=== PATIENT | female | born 1940 | race Caucasian/White ===

== ENCOUNTER 2016-09-08 00:58 | Inpatient (IN) | payer OTHER ==
[~2016-09-08] VITALS: Ht 154.9 cm; Wt 71.1 kg
[~2016-09-08 00:58] MED LIST: ADVAIR HFA120 INHALA IH; ASPIR-LOW81 MG PO; ATIVAN0.5 MG PO; BENZONATATE100 MG PO; EYE DROPS OP; FOLIC ACID0.4 MG PO; FOLIC ACID1 MG PO; IBUPROFEN800 MG PO; LATANO; LATANOPROST2.5 ML BOTH EYES; LEVAQUIN500 MG PO; METAMUCIL POWD822 GM PO; MOTRIN800 MG PO; NYQUIL D COLD295 ML PO; OCUVITE SOFTGE1 EACH PO; Ocuvite PO; PREDNISONE PO; PREDNISONE10 MG PO; PREDNISONE20 MG PO; PROAIR HFA8.5 GM IH; ROCEPHIN1000 MG IM; ROCEPHIN1000 MG IV; SPIRIVA RESPIMAT4 GM IH; SPIRIVA1 INHALATI IH; TARCEVA150 MG PO; TRAVATAN Z5 ML BOTH EYES; TYLENOL REGULA325 MG PO; TYLENOL WITH C1 EACH PO; Ultram PO; VITAMIN D1000 UNIT PO; VITAMIN D31000 UNIT PO; VITAMIN E1000 UNIT PO; ZITHROMAX250 MG PO
[2016-09-08 01:46] LABS: EOSINOPHIL (%) 0.7 % (0-5); EOSINOPHIL COUNT 0.1 K/uL (0-0.3); HEMATOCRIT 42.1 % (36.0-46.0); IMMATURE GRANULOCYTE (%) 0.5 % (0.0-0.7); IMMATURE GRANULOCYTE COUNT 0.1 K/uL; INSTRUMENT ABS NEUTROPHIL CT 10.8 K/uL; LYMPHOCYTE COUNT 1.5 K/uL (1.0-2.8); MCH 29.4 PG (29.0-34.0); MCHC 31.6 G/DL (30.0-36.0); MCV 93.1 FL (83-99); MEAN PLAT.VOLUME 10.3 uM^3 (9.5-12.4); MONOCYTE (%) 5.5 % (3-12); MONOCYTE COUNT 0.7 K/uL (0-0.8); NEUTROPHIL COUNT 10.8 K/uL (1.8-6.4); PLATELET COUNT 229 K/uL (156-360); RBC DIS.WIDTH-CV 14.2 % (11.8-14.6); RBC DIS.WIDTH-SD 48.9 % (39-53); RED BLOOD COUNT 4.52 M/uL (3.80-5.20); WHITE BLOOD COUNT 13.2 K/uL (4.1-10.2)
[2016-09-08 02:05] LABS: CHLORIDE 104 mEq/L (99-109); SODIUM 141 mEq/L (136-147)
[2016-09-08 02:07] LABS: GLUCOSE 114 mg/dL (70-99)
[2016-09-08 02:08] LABS: ANION GAP 13 MEQ/L (2-14)
[2016-09-08 02:09] LABS: TOTAL BILIRUBIN 0.4 mg/dL (0.0-1.0)
[2016-09-08 02:11] LABS: ALKALINE PHOSPHATASE 48 IU/L (3-129); GFR ESTIMATE (CALCULATED) > 59 mL/min/
[2016-09-08 02:12] LABS: UREA NITROGEN (BUN) 25 mg/dL (9-23)
[2016-09-08 02:15] LABS: TROP-I INTERPRETATION NEGATIVE; TROPONIN-I < 0.01 ng/mL (0.0-0.30)
[2016-09-08] MEDS ORDERED: TARCEVA25 MG PO (05:40)
[2016-09-08 06:28] VITALS: BP 134/74
[2016-09-08 08:02] VITALS: BP 118/58
[2016-09-08 10:03] LABS: TROP-I INTERPRETATION NEGATIVE; TROPONIN-I 0.02 ng/mL (0.0-0.30)
[2016-09-08 12:18] VITALS: BP 125/57
[2016-09-08] MEDS ORDERED: COLACE100 MG PO (12:48)
[2016-09-08] MEDS ORDERED: CYANOCOBAL1000 MCG/2 IM (12:49)
[2016-09-08 15:09] LABS: TROP-I INTERPRETATION NEGATIVE; TROPONIN-I < 0.01 ng/mL (0.0-0.30)
[2016-09-08 16:08] LABS: METH RESISTANT S AUREUS PCR NEGATIVE (NEGATIVE)
[2016-09-08 16:51] LABS: PROBE CHECK PASS; SPECIMEN PROCESSING CONTROL PASS
[2016-09-08 17:33] VITALS: BP 111/62
[2016-09-08 19:30] VITALS: BP 108/56
[2016-09-09] VITALS: BP 108/56
[2016-09-09 04:10] VITALS: BP 112/57
[2016-09-09 09:15] VITALS: BP 140/64
[2016-09-09 09:45] LABS: ANION GAP 10 MEQ/L (2-14); CHLORIDE 106 MEQ/L (99-109); GFR ESTIMATE (CALCULATED) > 59 mL/min/; GLUCOSE 124 mg/dL (70-99); SAMPLE HEMOLYSIS CHECK 0; SAMPLE ICTERIC CHECK 0; SAMPLE LIPEMIA CHECK 0; SODIUM 140 MEQ/L (136-147); UREA NITROGEN (BUN) 17 mg/dL (9-23)
[2016-09-09 10:03] LABS: HEMATOCRIT 34.3 % (36.0-46.0); MCH 29.5 PG (29.0-34.0); MCHC 31.8 G/DL (30.0-36.0); MCV 92.7 FL (83-99); MEAN PLAT.VOLUME 10.3 uM^3 (9.5-12.4); PLATELET COUNT 247 K/uL (156-360); RBC DIS.WIDTH-CV 14.6 % (11.8-14.6); RBC DIS.WIDTH-SD 49.3 % (39-53)
[2016-09-09 11:00] LABS: INTER. NORMALIZED RATIO 1.1; PROTHROMBIN TIME 10.9 (9.2-11.2); PTT 26.6 (25-32)
[2016-09-09 16:35] VITALS: BP 132/62
[2016-09-09 20:00] VITALS: BP 151/67
[2016-09-10] VITALS (10 sets, daily range): BP systolic 109–140; BP diastolic 53–78
[2016-09-10 10:52] LABS: HEMATOCRIT 34.6 % (36.0-46.0); MCH 29.9 PG (29.0-34.0); MCHC 32.7 G/DL (30.0-36.0); MCV 91.5 FL (83-99); MEAN PLAT.VOLUME 10.7 uM^3 (9.5-12.4); PLATELET COUNT 254 K/uL (156-360); RBC DIS.WIDTH-CV 14.6 % (11.8-14.6); RED BLOOD COUNT 3.78 M/uL (3.80-5.20); WHITE BLOOD COUNT 18.9 K/uL (4.1-10.2)
[2016-09-10 11:01] LABS: ANION GAP 8 MEQ/L (2-14); CHLORIDE 107 MEQ/L (99-109); GFR ESTIMATE (CALCULATED) > 59 mL/min/; GLUCOSE 97 mg/dL (70-99); POTASSIUM 3.7 MEQ/L (3.7-5.4); SAMPLE HEMOLYSIS CHECK 0; SAMPLE ICTERIC CHECK 0; SAMPLE LIPEMIA CHECK 0; SODIUM 143 MEQ/L (136-147); UREA NITROGEN (BUN) 19 mg/dL (9-23)
[2016-09-11 04:05] VITALS: BP 128/74
[2016-09-11 08:00] VITALS: BP 164/78
[2016-09-11 10:17] LABS: HEMATOCRIT 38.1 % (36.0-46.0); MCH 29.1 PG (29.0-34.0); MCHC 31.8 G/DL (30.0-36.0); MCV 91.6 FL (83-99); MEAN PLAT.VOLUME 10.1 uM^3 (9.5-12.4); PLATELET COUNT 297 K/uL (156-360); RBC DIS.WIDTH-CV 14.6 % (11.8-14.6); RBC DIS.WIDTH-SD 49.3 % (39-53); RED BLOOD COUNT 4.16 M/uL (3.80-5.20); WHITE BLOOD COUNT 10.5 K/uL (4.1-10.2)
[2016-09-11 10:23] LABS: ANION GAP 11 MEQ/L (2-14); CHLORIDE 106 MEQ/L (99-109); GFR ESTIMATE (CALCULATED) 57 mL/min/; GLUCOSE 111 mg/dL (70-99); POTASSIUM 3.9 MEQ/L (3.7-5.4); SAMPLE HEMOLYSIS CHECK 0; SAMPLE ICTERIC CHECK 0; SAMPLE LIPEMIA CHECK 0; SODIUM 142 MEQ/L (136-147); UREA NITROGEN (BUN) 19 mg/dL (9-23)
[2016-09-11 15:27] VITALS: BP 123/60
[2016-09-11 19:57] VITALS: BP 135/70
[2016-09-11 23:35] VITALS: BP 120/63
[2016-09-12 04:06] VITALS: BP 154/70
[2016-09-12 08:00] VITALS: BP 137/79
[2016-09-12 10:40] LABS: HEMATOCRIT 39.9 % (36.0-46.0); MCH 29.3 PG (29.0-34.0); MCHC 31.6 G/DL (30.0-36.0); MCV 92.8 FL (83-99); MEAN PLAT.VOLUME 9.8 uM^3 (9.5-12.4); PLATELET COUNT 301 K/uL (156-360); RBC DIS.WIDTH-CV 14.5 % (11.8-14.6); RBC DIS.WIDTH-SD 49.7 % (39-53); WHITE BLOOD COUNT 12.4 K/uL (4.1-10.2)
[2016-09-12 11:03] LABS: ANION GAP 11 MEQ/L (2-14); CHLORIDE 105 MEQ/L (99-109); GFR ESTIMATE (CALCULATED) > 59 mL/min/; GLUCOSE 109 mg/dL (70-99); POTASSIUM 3.8 MEQ/L (3.7-5.4); SAMPLE HEMOLYSIS CHECK 0; SAMPLE ICTERIC CHECK 0; SAMPLE LIPEMIA CHECK 0; SODIUM 141 MEQ/L (136-147); UREA NITROGEN (BUN) 18 mg/dL (9-23)
[2016-09-12 12:00] VITALS: BP 126/70
[2016-09-12 16:00] VITALS: BP 116/61
[2016-09-12 20:13] VITALS: BP 147/64
[2016-09-13] VITALS (7 sets, daily range): BP systolic 116–143; BP diastolic 58–70
[2016-09-14 04:05] VITALS: BP 130/62
[2016-09-14 08:21] VITALS: BP 138/64
[2016-09-14 09:08] LABS: MCH 29.2 PG (29.0-34.0); MCHC 31.7 G/DL (30.0-36.0); MCV 92.1 FL (83-99); MEAN PLAT.VOLUME 9.9 uM^3 (9.5-12.4); PLATELET COUNT 327 K/uL (156-360); RBC DIS.WIDTH-CV 14.6 % (11.8-14.6); RBC DIS.WIDTH-SD 48.6 % (39-53); RED BLOOD COUNT 3.91 M/uL (3.80-5.20)
[2016-09-14 10:09] LABS: ANION GAP 9 MEQ/L (2-14); CHLORIDE 105 MEQ/L (99-109); GFR ESTIMATE (CALCULATED) > 59 mL/min/; GLUCOSE 85 mg/dL (70-99); SAMPLE HEMOLYSIS CHECK 1; SAMPLE ICTERIC CHECK 0; SAMPLE LIPEMIA CHECK 0; SODIUM 142 MEQ/L (136-147); UREA NITROGEN (BUN) 18 mg/dL (9-23)
[2016-09-14 10:10] LABS: POTASSIUM 4.2 MEQ/L (3.7-5.4)
[2016-09-14 12:22] VITALS: BP 146/68
[2016-09-14 16:45] VITALS: BP 130/64
[2016-09-14 19:57] VITALS: BP 112/56
[2016-09-14 23:41] VITALS: BP 118/56
[2016-09-15 04:05] VITALS: BP 139/66
[2016-09-15 07:56] LABS: HEMATOCRIT 35.1 % (36.0-46.0); MCH 29.6 PG (29.0-34.0); MCHC 31.9 G/DL (30.0-36.0); MCV 92.6 FL (83-99); MEAN PLAT.VOLUME 9.7 uM^3 (9.5-12.4); PLATELET COUNT 338 K/uL (156-360); RBC DIS.WIDTH-CV 14.6 % (11.8-14.6); RBC DIS.WIDTH-SD 49.6 % (39-53); RED BLOOD COUNT 3.79 M/uL (3.80-5.20); WHITE BLOOD COUNT 13.7 K/uL (4.1-10.2)
[2016-09-15 08:00] VITALS: BP 120/65
[2016-09-15 08:10] LABS: ANION GAP 6 MEQ/L (2-14); CHLORIDE 105 MEQ/L (99-109); GFR ESTIMATE (CALCULATED) > 59 mL/min/; GLUCOSE 80 mg/dL (70-99); POTASSIUM 4.5 MEQ/L (3.7-5.4); SAMPLE HEMOLYSIS CHECK 0; SAMPLE ICTERIC CHECK 0; SAMPLE LIPEMIA CHECK 0; SODIUM 141 MEQ/L (136-147); UREA NITROGEN (BUN) 21 mg/dL (9-23)
[2016-09-15] MEDS ORDERED: LEVAQUIN500 MG PO (08:53)
== END 2016-09-15 10:25 | disposition home or self-care (01) | DRG 190 ==
LOC: EME → EDBD 00:58 → 4SOUTH 04:02 → EDOF 04:02 → 4SOUTH 05:02
PROVIDERS: Emergency Medicine; Physician Assistant; Radiology Diagnostic Radiology
PROC: 0BBG3ZX Excision of Left Upper Lung Lobe, Percutaneous Approach, Diagnostic (ICD-10-PCS; principal; 2016-09-08)
DX: J44.1 Chronic obstructive pulmonary disease with (acute) exacerbation (principal); J18.9 Pneumonia, unspecified organism; C34.90 Malignant neoplasm of unspecified part of unspecified bronchus or lung; C79.9 Secondary malignant neoplasm of unspecified site; F32.9 Major depressive disorder, single episode, unspecified; F41.9 Anxiety disorder, unspecified; Z77.22 Contact with and (suspected) exposure to environmental tobacco smoke (acute) (chronic); Z92.21 Personal history of antineoplastic chemotherapy; Z92.3 Personal history of irradiation; D72.829 Elevated white blood cell count, unspecified
CPT/HCPCS: 71010; 71275; 77012; 80048; 80053; 83605; 84145 90; 84484; 85025; 85027; 85610; 85730; 87040; 87641; 88305; 88341 TC; 88342 TC; 93005; 94010; 94640; 94640 76; 94799; 99202; 99281; 99285; J0456; J0692; J0696; J1650; J2270; J2405; J2920; J3010; J7030; J7040; J7050; J7512

== ENCOUNTER 2016-11-25 20:14 | Emergency (ER) | payer OTHER ==
[~2016-11-25] VITALS: Ht 152.4 cm; Wt 69.8 kg
[~2016-11-25 20:14] MED LIST changes: +COLACE100 MG PO; +CYANOCOBAL1000 MCG/2 IM; +TARCEVA25 MG PO
[2016-11-25 20:38] LABS: BASOPHIL COUNT 0.1 K/uL (0-0.1); EOSINOPHIL COUNT 0.1 K/uL (0-0.3); HEMATOCRIT 35.9 % (36.0-46.0); IMMATURE GRANULOCYTE (%) 0.8 % (0.0-0.7); IMMATURE GRANULOCYTE COUNT 0.1 K/uL; INSTRUMENT ABS NEUTROPHIL CT 6.4 K/uL; LYMPHOCYTE COUNT 3.9 K/uL (1.0-2.8); MCH 29.7 PG (29.0-34.0); MCHC 32.3 G/DL (30.0-36.0); MCV 91.8 FL (83-99); MONOCYTE (%) 11.6 % (3-12); MONOCYTE COUNT 1.4 K/uL (0-0.8); NEUTROPHIL (%) 53.7 % (45-76); NEUTROPHIL COUNT 6.4 K/uL (1.8-6.4); PLATELET COUNT 243 K/uL (156-360); RBC DIS.WIDTH-CV 14.6 % (11.8-14.6); RBC DIS.WIDTH-SD 49.1 % (39-53); RED BLOOD COUNT 3.91 M/uL (3.80-5.20)
[2016-11-25 20:48] LABS: CHLORIDE 105 mEq/L (99-109); POTASSIUM 3.9 mEq/L (3.7-5.4); SODIUM 139 mEq/L (136-147)
[2016-11-25 20:50] LABS: GLUCOSE 117 mg/dL (70-99)
[2016-11-25 20:51] LABS: ANION GAP 10 MEQ/L (2-14)
[2016-11-25 20:53] LABS: SERUM ETHYL ALCOHOL < 10 mg/dL
[2016-11-25 20:54] LABS: GFR ESTIMATE (CALCULATED) 46 mL/min/
[2016-11-25 20:55] LABS: UREA NITROGEN (BUN) 17 mg/dL (9-23)
[2016-11-26] MEDS ORDERED: PERCOCET 5/31 TABLET PO (00:40)
[2016-11-26 01:02] VITALS: BP 124/74
== END 2016-11-26 01:02 | disposition home or self-care (01) ==
LOC: EME 20:14
PROVIDERS: Emergency Medicine
PROC: 2W3DX1Z Immobilization of Left Lower Arm using Splint (ICD-10-PCS; principal; 2016-11-25)
DX: S52.572A Other intraarticular fracture of lower end of left radius, initial encounter for closed fracture (principal); S06.9X1A Unspecified intracranial injury with loss of consciousness of 30 minutes or less, initial encounter; S00.83XA Contusion of other part of head, initial encounter; W10.9XXA Fall (on) (from) unspecified stairs and steps, initial encounter; Y92.009 Unspecified place in unspecified non-institutional (private) residence as the place of occurrence of the external cause; J32.0 Chronic maxillary sinusitis; M85.822 Other specified disorders of bone density and structure, left upper arm; M11.232 Other chondrocalcinosis, left wrist; Z85.118 Personal history of other malignant neoplasm of bronchus and lung; Z79.52 Long term (current) use of systemic steroids
CPT/HCPCS: 70450; 70486; 72125; 73060; 73090; 73110; 80048; 85025; 93005; 99281; 99285; G0480; J2270; J2405; J3010; J7030

== ENCOUNTER 2016-12-17 10:09 | Inpatient (IN) | payer OTHER ==
[~2016-12-17] VITALS: Ht 152.4 cm; Wt 70.0 kg
[~2016-12-17 10:09] MED LIST changes: +PERCOCET 5/31 TABLET PO; +ZOLOFT25 MG PO
[2016-12-17 11:20] LABS: EOSINOPHIL (%) 0.9 % (0-5); EOSINOPHIL COUNT 0.1 K/uL (0-0.3); HEMATOCRIT 38.2 % (36.0-46.0); IMMATURE GRANULOCYTE (%) 0.3 % (0.0-0.7); INSTRUMENT ABS NEUTROPHIL CT 6.7 K/uL; LYMPHOCYTE COUNT 1.6 K/uL (1.0-2.8); MCH 29.3 PG (29.0-34.0); MCHC 31.9 G/DL (30.0-36.0); MCV 91.8 FL (83-99); MONOCYTE (%) 8.8 % (3-12); MONOCYTE COUNT 0.8 K/uL (0-0.8); NEUTROPHIL COUNT 6.7 K/uL (1.8-6.4); PLATELET COUNT 322 K/uL (156-360); RBC DIS.WIDTH-CV 14.4 % (11.8-14.6); RBC DIS.WIDTH-SD 48.6 % (39-53); RED BLOOD COUNT 4.16 M/uL (3.80-5.20); WHITE BLOOD COUNT 9.2 K/uL (4.1-10.2)
[2016-12-17 11:22] LABS: CHLORIDE 105 mEq/L (99-109); POTASSIUM 3.8 mEq/L (3.7-5.4); SODIUM 140 mEq/L (136-147)
[2016-12-17 11:23] LABS: GLUCOSE 108 mg/dL (70-99)
[2016-12-17 11:25] LABS: ANION GAP 12 MEQ/L (2-14)
[2016-12-17 11:27] LABS: GFR ESTIMATE (CALCULATED) > 59 mL/min/
[2016-12-17 11:28] LABS: UREA NITROGEN (BUN) 13 mg/dL (9-23)
[2016-12-17 11:36] LABS: TROP-I INTERPRETATION NEGATIVE; TROPONIN-I < 0.01 ng/mL (0.0-0.30)
[2016-12-17] MEDS ORDERED: LATANOPROST2.5 ML BOTH EYES (14:10)
[2016-12-17] MEDS ORDERED: SPIRIVA RESPIMAT4 GM IH (14:10)
[2016-12-17 15:43] VITALS: BP 146/73
[2016-12-17 17:27] LABS: TROP-I INTERPRETATION NEGATIVE; TROPONIN-I 0.01 ng/mL (0.0-0.30)
[2016-12-17 19:45] VITALS: BP 162/76
[2016-12-17 23:38] VITALS: BP 140/65
[2016-12-17 23:43] LABS: TROP-I INTERPRETATION NEGATIVE; TROPONIN-I < 0.01 ng/mL (0.0-0.30)
[2016-12-18 04:22] VITALS: BP 153/70
[2016-12-18 06:18] LABS: EOSINOPHIL (%) 0 % (0-5); HEMATOCRIT 34.1 % (36.0-46.0); IMMATURE GRANULOCYTE (%) 0.9 % (0.0-0.7); IMMATURE GRANULOCYTE COUNT 0.1 K/uL; INSTRUMENT ABS NEUTROPHIL CT 4.7 K/uL; LYMPHOCYTE COUNT 0.7 K/uL (1.0-2.8); MCH 30.8 PG (29.0-34.0); MCHC 33.1 G/DL (30.0-36.0); MCV 92.9 FL (83-99); MEAN PLAT.VOLUME 10.4 uM^3 (9.5-12.4); MONOCYTE (%) 0.7 % (3-12); NEUTROPHIL COUNT 4.7 K/uL (1.8-6.4); PLATELET COUNT 267 K/uL (156-360); RBC DIS.WIDTH-CV 14.3 % (11.8-14.6); RBC DIS.WIDTH-SD 48.4 % (39-53); RED BLOOD COUNT 3.67 M/uL (3.80-5.20); WHITE BLOOD COUNT 5.5 K/uL (4.1-10.2)
[2016-12-18 06:34] LABS: ALKALINE PHOSPHATASE 54 IU/L (3-129); ANION GAP 9 MEQ/L (2-14); CHLORIDE 103 MEQ/L (99-109); GFR ESTIMATE (CALCULATED) > 59 mL/min/; POTASSIUM 4.3 MEQ/L (3.7-5.4); SAMPLE HEMOLYSIS CHECK 0; SAMPLE ICTERIC CHECK 0; SAMPLE LIPEMIA CHECK 0; SODIUM 137 MEQ/L (136-147); TOTAL BILIRUBIN 0.3 MG/DL (0.0-1.0); UREA NITROGEN (BUN) 10 mg/dL (9-23)
[2016-12-18 06:51] LABS: GLUCOSE 166 mg/dL (70-99); TROP-I INTERPRETATION NEGATIVE; TROPONIN-I 0.01 ng/mL (0.0-0.30)
[2016-12-18 08:00] VITALS: BP 135/62
[2016-12-18 12:17] VITALS: BP 149/71
[2016-12-18 15:32] VITALS: BP 136/62
[2016-12-18] MEDS ORDERED: OXYCODONE HCL5 MG PO (16:13)
[2016-12-18] MEDS ORDERED: FENTANYL1 EAC4 TD (16:13)
[2016-12-18 19:40] VITALS: BP 148/70
[2016-12-18 23:09] VITALS: BP 164/74
[2016-12-19 04:49] VITALS: BP 150/68
[2016-12-19 07:30] LABS: EOSINOPHIL (%) 0 % (0-5); HEMATOCRIT 34.9 % (36.0-46.0); IMMATURE GRANULOCYTE (%) 0.7 % (0.0-0.7); IMMATURE GRANULOCYTE COUNT 0.1 K/uL; INSTRUMENT ABS NEUTROPHIL CT 14.4 K/uL; LYMPHOCYTE COUNT 1.2 K/uL (1.0-2.8); MCH 30.4 PG (29.0-34.0); MCHC 32.4 G/DL (30.0-36.0); MCV 93.8 FL (83-99); MEAN PLAT.VOLUME 10.4 uM^3 (9.5-12.4); MONOCYTE (%) 3.1 % (3-12); MONOCYTE COUNT 0.5 K/uL (0-0.8); NEUTROPHIL (%) 88.7 % (45-76); NEUTROPHIL COUNT 14.4 K/uL (1.8-6.4); PLATELET COUNT 262 K/uL (156-360); RBC DIS.WIDTH-CV 14.4 % (11.8-14.6); RBC DIS.WIDTH-SD 49.2 % (39-53); RED BLOOD COUNT 3.72 M/uL (3.80-5.20); WHITE BLOOD COUNT 16.2 K/uL (4.1-10.2)
[2016-12-19 07:44] LABS: ALKALINE PHOSPHATASE 56 IU/L (3-129); ANION GAP 8 MEQ/L (2-14); CHLORIDE 103 MEQ/L (99-109); GFR ESTIMATE (CALCULATED) > 59 mL/min/; GLUCOSE 143 mg/dL (70-99); POTASSIUM 4.4 MEQ/L (3.7-5.4); SAMPLE HEMOLYSIS CHECK 0; SAMPLE ICTERIC CHECK 0; SAMPLE LIPEMIA CHECK 0; SODIUM 138 MEQ/L (136-147); TOTAL BILIRUBIN 0.3 MG/DL (0.0-1.0); UREA NITROGEN (BUN) 14 mg/dL (9-23)
[2016-12-19 12:02] VITALS: BP 132/64
[2016-12-19 17:20] VITALS: BP 142/67
[2016-12-19 20:00] VITALS: BP 140/69
[2016-12-19 23:49] VITALS: BP 162/80
[2016-12-20 03:55] VITALS: BP 136/64
[2016-12-20 05:52] LABS: EOSINOPHIL (%) 0 % (0-5); HEMATOCRIT 33.8 % (36.0-46.0); IMMATURE GRANULOCYTE (%) 0.5 % (0.0-0.7); IMMATURE GRANULOCYTE COUNT 0.1 K/uL; INSTRUMENT ABS NEUTROPHIL CT 13.5 K/uL; LYMPHOCYTE COUNT 0.9 K/uL (1.0-2.8); MCH 29.9 PG (29.0-34.0); MCHC 32.2 G/DL (30.0-36.0); MCV 92.6 FL (83-99); MEAN PLAT.VOLUME 10.8 uM^3 (9.5-12.4); MONOCYTE (%) 2.6 % (3-12); MONOCYTE COUNT 0.4 K/uL (0-0.8); NEUTROPHIL (%) 90.9 % (45-76); NEUTROPHIL COUNT 13.5 K/uL (1.8-6.4); PLATELET COUNT 254 K/uL (156-360); RBC DIS.WIDTH-CV 14.6 % (11.8-14.6); RBC DIS.WIDTH-SD 49.5 % (39-53); RED BLOOD COUNT 3.65 M/uL (3.80-5.20); WHITE BLOOD COUNT 14.9 K/uL (4.1-10.2)
[2016-12-20 06:28] LABS: ALKALINE PHOSPHATASE 48 IU/L (3-129); ANION GAP 8 MEQ/L (2-14); CHLORIDE 98 MEQ/L (99-109); GFR ESTIMATE (CALCULATED) > 59 mL/min/; GLUCOSE 146 mg/dL (70-99); POTASSIUM 4.8 MEQ/L (3.7-5.4); SAMPLE HEMOLYSIS CHECK 0; SAMPLE ICTERIC CHECK 0; SAMPLE LIPEMIA CHECK 0; SODIUM 134 MEQ/L (136-147); TOTAL BILIRUBIN 0.3 MG/DL (0.0-1.0); UREA NITROGEN (BUN) 17 mg/dL (9-23)
[2016-12-20 08:00] VITALS: BP 151/74
[2016-12-20] MEDS ORDERED: SENNA-DOCUSATE1 EAC1 PO (12:05)
[2016-12-20] MEDS ORDERED: AUGMENTIN875 MG PO (12:07)
[2016-12-20] MEDS ORDERED: OMEPRAZOLE20 MG PO (12:18)
[2016-12-20 13:37] VITALS: BP 132/72
== END 2016-12-20 14:17 | disposition home or self-care (01) | DRG 190 ==
LOC: EME 10:09 → EDOF 13:29 → 4EAST 13:29
PROVIDERS: Emergency Medicine; Hospitalist
DX: J44.0 Chronic obstructive pulmonary disease with (acute) lower respiratory infection (principal); J18.9 Pneumonia, unspecified organism; C34.91 Malignant neoplasm of unspecified part of right bronchus or lung; C34.92 Malignant neoplasm of unspecified part of left bronchus or lung; C79.9 Secondary malignant neoplasm of unspecified site; J44.1 Chronic obstructive pulmonary disease with (acute) exacerbation; I48.91 Unspecified atrial fibrillation; K59.00 Constipation, unspecified; J96.11 Chronic respiratory failure with hypoxia; Y95 Nosocomial condition; R63.4 Abnormal weight loss; Z92.21 Personal history of antineoplastic chemotherapy; Z99.81 Dependence on supplemental oxygen; S52.502D Unspecified fracture of the lower end of left radius, subsequent encounter for closed fracture with routine healing
CPT/HCPCS: 71010; 71020; 71275; 73110; 80048; 80053; 84484; 85025; 87040; 93005; 94010; 94640; 94640 76; 94760; 94799; 99202; 99281; 99285; J0456; J0692; J0696; J1650; J2270; J2405; J2920; J2930; J3370; J7050; Q0167

== ENCOUNTER 2016-12-23 18:49 | Emergency (ER) | payer OTHER ==
[~2016-12-23] VITALS: Ht 152.4 cm; Wt 65.5 kg
[~2016-12-23 18:49] MED LIST changes: +AUGMENTIN875 MG PO; +FENTANYL1 EAC4 TD; +OMEPRAZOLE20 MG PO; +OXYCODONE HCL5 MG PO; +SENNA-DOCUSATE1 EAC1 PO
[2016-12-23 20:25] LABS: EOSINOPHIL (%) 0.8 % (0-5); EOSINOPHIL COUNT 0.1 K/uL (0-0.3); HEMATOCRIT 38.2 % (36.0-46.0); IMMATURE GRANULOCYTE (%) 0.6 % (0.0-0.7); IMMATURE GRANULOCYTE COUNT 0.1 K/uL; INSTRUMENT ABS NEUTROPHIL CT 7.8 K/uL; MCH 29.8 PG (29.0-34.0); MCHC 32.7 G/DL (30.0-36.0); MEAN PLAT.VOLUME 10.6 uM^3 (9.5-12.4); MONOCYTE (%) 11.1 % (3-12); MONOCYTE COUNT 1.2 K/uL (0-0.8); NEUTROPHIL (%) 69.9 % (45-76); NEUTROPHIL COUNT 7.8 K/uL (1.8-6.4); PLATELET COUNT 250 K/uL (156-360); RBC DIS.WIDTH-CV 14.3 % (11.8-14.6); RBC DIS.WIDTH-SD 47.5 % (39-53); WHITE BLOOD COUNT 11.2 K/uL (4.1-10.2)
[2016-12-23 20:39] LABS: CHLORIDE 101 mEq/L (99-109)
[2016-12-23 20:40] LABS: SODIUM 137 mEq/L (136-147)
[2016-12-23 20:41] LABS: GLUCOSE 117 mg/dL (70-99)
[2016-12-23 20:43] LABS: ANION GAP 11 MEQ/L (2-14)
[2016-12-23 20:45] LABS: GFR ESTIMATE (CALCULATED) > 59 mL/min/
[2016-12-23 20:46] LABS: UREA NITROGEN (BUN) 16 mg/dL (9-23)
[2016-12-23 20:48] LABS: TROP-I INTERPRETATION NEGATIVE; TROPONIN-I < 0.01 ng/mL (0.0-0.30)
[2016-12-23] MEDS ORDERED: MEDROL DOSEPAK4 MG PO (22:45)
[2016-12-23 23:23] VITALS: BP 141/82
== END 2016-12-23 23:28 | disposition home or self-care (01) ==
LOC: EME 18:49
PROVIDERS: Emergency Medicine
DX: C34.90 Malignant neoplasm of unspecified part of unspecified bronchus or lung (principal); J44.9 Chronic obstructive pulmonary disease, unspecified; Z99.81 Dependence on supplemental oxygen; Z87.01 Personal history of pneumonia (recurrent); Z79.899 Other long term (current) drug therapy; Z92.3 Personal history of irradiation
CPT/HCPCS: 71010; 71275; 80048; 83605; 84484; 85025; 87040; 93005; 99281; 99284; J2930

== ENCOUNTER 2017-03-17 15:58 | Observation (INO) | payer OTHER ==
[~2017-03-17] VITALS: Ht 152.4 cm; Wt 61.1 kg
[~2017-03-17 15:58] MED LIST changes: +ARYMO ER15 MG PO; +MEDROL DOSEPAK4 MG PO; +REMERON15 M2 PO
[2017-03-17 16:57] LABS: HEMATOCRIT 34.7 % (36.0-46.0); MCH 26.9 PG (29.0-34.0); MCHC 31.7 G/DL (30.0-36.0); MCV 84.8 FL (83-99); MEAN PLAT.VOLUME 10.3 uM^3 (9.5-12.4); PLATELET COUNT 344 K/uL (156-360); RBC DIS.WIDTH-CV 13.2 % (11.8-14.6); RBC DIS.WIDTH-SD 41.1 % (39-53); RED BLOOD COUNT 4.09 M/uL (3.80-5.20)
[2017-03-17 17:41] LABS: CHLORIDE 95 mEq/L (99-109); POTASSIUM 4.1 mEq/L (3.7-5.4); SODIUM 131 mEq/L (136-147)
[2017-03-17 17:43] LABS: ANION GAP 14 MEQ/L (2-14)
[2017-03-17 17:46] LABS: GFR ESTIMATE (CALCULATED) 42 mL/min/; GLUCOSE 753 mg/dL (70-99)
[2017-03-17 17:47] LABS: UREA NITROGEN (BUN) 21 mg/dL (9-23)
[2017-03-17 18:40] LABS: ADD MIUA? NO; BILIRUBIN NEGATIVE; BLOOD NEGATIVE; COLOR STRAW ((YELLOW)); GLUCOSE (STRIP) >=500; KETONES 5; LEUKOCYTES NEGATIVE; NITRITE NEGATIVE; PROTEIN (STRIP) NEGATIVE; UROBILINOGEN 0.2 MG/DL (0.2-1.0)
[2017-03-17] MEDS ORDERED: MIRTAZAPINE30 MG PO (19:24)
[2017-03-17] MEDS ORDERED: MORPHINE SULFAT15 M1 PO (19:25)
[2017-03-17 19:31] LABS: UCUL ADDED? NO
[2017-03-17] MEDS ORDERED: IBUPROFEN800 MG PO (19:31)
[2017-03-17] MEDS ORDERED: COMPAZINE10 MG PO (19:33)
[2017-03-17] MEDS ORDERED: FOLIC ACID0.4 MG PO (19:34)
[2017-03-17 21:15] LABS: POINT-OF-CARE METER ID UU13113702; POINT-OF-CARE USER ID HMLKAV
[2017-03-18 00:15] VITALS: BP 140/65
[2017-03-18 00:54] LABS: POINT-OF-CARE METER ID UU13113831
[2017-03-18 03:53] VITALS: BP 129/60
[2017-03-18 05:45] LABS: HEMATOCRIT 31.7 % (36.0-46.0); MCH 26.7 PG (29.0-34.0); MCHC 30.9 G/DL (30.0-36.0); MCV 86.4 FL (83-99); MEAN PLAT.VOLUME 10.1 uM^3 (9.5-12.4); PLATELET COUNT 319 K/uL (156-360); RBC DIS.WIDTH-CV 13.1 % (11.8-14.6); RBC DIS.WIDTH-SD 41.6 % (39-53); RED BLOOD COUNT 3.67 M/uL (3.80-5.20); WHITE BLOOD COUNT 10.5 K/uL (4.1-10.2)
[2017-03-18 06:13] LABS: POINT-OF-CARE METER ID UU14162513
[2017-03-18 06:16] LABS: ANION GAP 10 MEQ/L (2-14); GFR ESTIMATE (CALCULATED) > 59 mL/min/; SAMPLE HEMOLYSIS CHECK 0; SAMPLE ICTERIC CHECK 0; SAMPLE LIPEMIA CHECK 0; UREA NITROGEN (BUN) 16 mg/dL (9-23)
[2017-03-18 06:20] LABS: CHLORIDE 107 MEQ/L (99-109); GLUCOSE 76 mg/dL (70-99); POTASSIUM 3.2 MEQ/L (3.7-5.4); SODIUM 140 MEQ/L (136-147)
[2017-03-18 07:03] LABS: Estimated Average Glucose 217 mg/dL (70-123); HEMOGLOBIN A1c (GLYCOHEMOGLOB) 9.2 % HGB (Below 5.7)
[2017-03-18 07:04] LABS: POINT-OF-CARE METER ID UU14162513
[2017-03-18 07:45] VITALS: BP 116/56
[2017-03-18] MEDS ORDERED: GLUCOPHAGE500 MG PO (11:10)
[2017-03-18] MEDS ORDERED: LEVEMIR FL100 UNIT/1 SC (11:10)
[2017-03-18] MEDS ORDERED: NOVOLOG MI100 UNIT/2 SC (11:11)
[2017-03-18 11:50] VITALS: BP 137/63
[2017-03-18 12:57] LABS: POINT-OF-CARE METER ID UU14162513
[2017-03-19 15:19] LABS: POINT-OF-CARE METER ID UU13113702; POINT-OF-CARE USER ID HMLKAV
[2017-03-19 15:19] LABS: POINT-OF-CARE METER ID UU13113778
== END 2017-03-18 16:10 | disposition home or self-care (01) ==
LOC: EME 15:58 → EDOF 20:21 → 5WEST 20:21 → ENRESERV 20:23 → 5WEST 23:59
PROVIDERS: Emergency Medicine; Hospitalist
DX: E11.65 Type 2 diabetes mellitus with hyperglycemia (principal); T38.0X5A Adverse effect of glucocorticoids and synthetic analogues, initial encounter; R19.7 Diarrhea, unspecified; J44.9 Chronic obstructive pulmonary disease, unspecified; Z99.81 Dependence on supplemental oxygen; C34.90 Malignant neoplasm of unspecified part of unspecified bronchus or lung; Z92.21 Personal history of antineoplastic chemotherapy; Z79.899 Other long term (current) drug therapy; Z79.52 Long term (current) use of systemic steroids; R09.02 Hypoxemia; E87.1 Hypo-osmolality and hyponatremia; Z83.3 Family history of diabetes mellitus; Z90.710 Acquired absence of both cervix and uterus; Z82.49 Family history of ischemic heart disease and other diseases of the circulatory system
CPT/HCPCS: 80048; 81003; 82948; 83036; 83630; 85027; 87493; 87506; 94640; 94799; 99202; 99281; 99285; G0378; J1644; J1815; J7030; J7512; Q0164

== ENCOUNTER 2017-03-25 08:56 | Inpatient (IN) | payer OTHER ==
[~2017-03-25] VITALS: Ht 152.4 cm; Wt 62.3 kg
[~2017-03-25 08:56] MED LIST changes: +COMPAZINE10 MG PO; +GLUCOPHAGE500 MG PO; +LEVEMIR FL100 UNIT/1 SC; +MIRTAZAPINE30 MG PO; +MORPHINE SULFAT15 M1 PO; +NOVOLOG MI100 UNIT/2 SC
[2017-03-25 09:58] LABS: HEMATOCRIT 31.6 % (36.0-46.0); MCHC 31.6 G/DL (30.0-36.0); MCV 85.2 FL (83-99); PLATELET COUNT 262 K/uL (156-360); RBC DIS.WIDTH-CV 14.2 % (11.8-14.6); RBC DIS.WIDTH-SD 44.2 % (39-53); RED BLOOD COUNT 3.71 M/uL (3.80-5.20); WHITE BLOOD COUNT 18.4 K/uL (4.1-10.2)
[2017-03-25 10:25] LABS: ANION GAP 10 MEQ/L (2-14); CHLORIDE 99 MEQ/L (99-109); GFR ESTIMATE (CALCULATED) > 59 mL/min/; GLUCOSE 134 mg/dL (70-99); POTASSIUM 3.9 MEQ/L (3.7-5.4); SAMPLE HEMOLYSIS CHECK 0; SAMPLE ICTERIC CHECK 0; SAMPLE LIPEMIA CHECK 0; SODIUM 133 MEQ/L (136-147); UREA NITROGEN (BUN) 22 mg/dL (9-23)
[2017-03-25 10:28] LABS: TROP-I INTERPRETATION NEGATIVE; TROPONIN-I 0.01 ng/mL (0.0-0.30)
[2017-03-25 10:45] LABS: ABS NEUTROPHIL COUNT 16.1; BAND NEUTROPHILS 29.1 % (0-8.0); BASOPHILS 0.9 %; EOSINOPHIL ABS CT 0; INSTRUMENT ABS NEUTROPHIL CT 16.7 K/uL; LYMPHOCYTES 4.5 % (15.0-45.0); MYELOCYTES 0.9 %; PLAT.SUFFICIENCY ADEQUATE; SEG.NEUTROPHILS 58.2 % (46.0-76.0)
[2017-03-25] MEDS ORDERED: PREDNISONE10 MG PO (11:59)
[2017-03-25] MEDS ORDERED: COMPAZINE10 MG PO (12:01)
[2017-03-25] MEDS ORDERED: VITAMIN D31000 UNI2 PO (12:02)
[2017-03-25] MEDS ORDERED: DUONEB 2.5-0.5 M3 ML AEROSOL (12:03)
[2017-03-25 14:54] VITALS: BP 152/64
[2017-03-25 15:44] LABS: POINT-OF-CARE METER ID UU14314084
[2017-03-25 16:21] LABS: INFLUENZA A VIRAL ANTIGEN NEGATIVE; INFLUENZA B VIRAL ANTIGEN NEGATIVE
[2017-03-25 17:03] LABS: METH RESISTANT S AUREUS PCR NEGATIVE (NEGATIVE)
[2017-03-25 17:13] LABS: PROBE CHECK PASS; SPECIMEN PROCESSING CONTROL PASS
[2017-03-25 19:58] VITALS: BP 112/54
[2017-03-25 21:14] LABS: POINT-OF-CARE METER ID UU14208750
[2017-03-26] VITALS (7 sets, daily range): BP systolic 105–120; BP diastolic 53–58
[2017-03-26 07:15] LABS: HEMATOCRIT 30.1 % (36.0-46.0); MCH 27.5 PG (29.0-34.0); MCHC 31.9 G/DL (30.0-36.0); MCV 86.2 FL (83-99); MEAN PLAT.VOLUME 10.6 uM^3 (9.5-12.4); PLATELET COUNT 264 K/uL (156-360); RBC DIS.WIDTH-CV 14.5 % (11.8-14.6); RBC DIS.WIDTH-SD 45.8 % (39-53); RED BLOOD COUNT 3.49 M/uL (3.80-5.20); WHITE BLOOD COUNT 12.3 K/uL (4.1-10.2)
[2017-03-26 07:33] LABS: ANION GAP 8 MEQ/L (2-14); CHLORIDE 105 MEQ/L (99-109); GFR ESTIMATE (CALCULATED) > 59 mL/min/; GLUCOSE 126 mg/dL (70-99); POTASSIUM 4.2 MEQ/L (3.7-5.4); SAMPLE HEMOLYSIS CHECK 1; SAMPLE ICTERIC CHECK 0; SAMPLE LIPEMIA CHECK 0; SODIUM 138 MEQ/L (136-147); UREA NITROGEN (BUN) 16 mg/dL (9-23)
[2017-03-26 07:37] LABS: POINT-OF-CARE METER ID UU14314084
[2017-03-26 07:46] LABS: ATYPICAL LYMPHOCYTE 0.9 %; BAND NEUTROPHILS 17.9 % (0-8.0); BURR CELLS 1+; EOSINOPHIL ABS CT 0.2; EOSINOPHILS 1.8 % (0-5.0); INSTRUMENT ABS NEUTROPHIL CT 10.2 K/uL; LYMPHOCYTES 8.9 % (15.0-45.0); MYELOCYTES 1.8 %; PLAT.SUFFICIENCY ADEQUATE; POIKILOCYTOSIS 2+; SEG.NEUTROPHILS 63.4 % (46.0-76.0)
[2017-03-26 08:03] LABS: INTERNAL CONTROL VALID? YES
[2017-03-26 11:54] LABS: POINT-OF-CARE METER ID UU14314084
[2017-03-26 16:07] LABS: POINT-OF-CARE METER ID UU14314084
[2017-03-26 20:25] LABS: POINT-OF-CARE METER ID UU14314084
[2017-03-27 03:37] VITALS: BP 132/64
[2017-03-27 05:50] LABS: HEMATOCRIT 28.7 % (36.0-46.0); MCH 28.4 PG (29.0-34.0); MCHC 32.4 G/DL (30.0-36.0); MCV 87.5 FL (83-99); MEAN PLAT.VOLUME 10.5 uM^3 (9.5-12.4); PLATELET COUNT 255 K/uL (156-360); RBC DIS.WIDTH-CV 14.3 % (11.8-14.6); RBC DIS.WIDTH-SD 45.8 % (39-53); RED BLOOD COUNT 3.28 M/uL (3.80-5.20); WHITE BLOOD COUNT 8.2 K/uL (4.1-10.2)
[2017-03-27 06:16] LABS: ALKALINE PHOSPHATASE 59 IU/L (3-129); ANION GAP 8 MEQ/L (2-14); CHLORIDE 106 MEQ/L (99-109); GFR ESTIMATE (CALCULATED) > 59 mL/min/; SAMPLE HEMOLYSIS CHECK 0; SAMPLE ICTERIC CHECK 0; SAMPLE LIPEMIA CHECK 0; SODIUM 138 MEQ/L (136-147); TOTAL BILIRUBIN 0.4 MG/DL (0.0-1.0); UREA NITROGEN (BUN) 18 mg/dL (9-23)
[2017-03-27 06:20] LABS: GLUCOSE 284 mg/dL (70-99)
[2017-03-27 06:50] LABS: EOSINOPHIL (%) 0 % (0-5); HEMATOLOGY COMMENT 1 SN; IMMATURE GRANULOCYTE COUNT 0.1 K/uL; INSTRUMENT ABS NEUTROPHIL CT 7.1 K/uL; LYMPHOCYTE COUNT 0.8 K/uL (1.0-2.8); MONOCYTE (%) 2.3 % (3-12); MONOCYTE COUNT 0.2 K/uL (0-0.8); NEUTROPHIL (%) 86.3 % (45-76); NEUTROPHIL COUNT 7.1 K/uL (1.8-6.4)
[2017-03-27 06:51] LABS: POINT-OF-CARE METER ID UU14208750
[2017-03-27 08:00] VITALS: BP 130/62
[2017-03-27 10:33] LABS: BASE EXCESS -1.7 mEq/L (-3 to +3); CARBOXY HGB 1.4 % (0-5); COMMENTS - BLOOD GASES A+C+; DEVICE NC; METHEMOGLOBIN 0.9 % (0-1.5); O2 FLOW 2 L/MIN; PCO2 38 mm Hg (35-45); PO2 77 mm Hg (80-100); SITE RR; pH 7.39 (7.35-7.45)
[2017-03-27 11:59] LABS: POINT-OF-CARE METER ID UU14314084
[2017-03-27 16:11] VITALS: BP 111/53
[2017-03-27 16:42] LABS: POINT-OF-CARE METER ID UU14314084
[2017-03-27 20:59] LABS: POINT-OF-CARE METER ID UU14314084
[2017-03-28 00:16] VITALS: BP 156/70
[2017-03-28 06:02] LABS: POINT-OF-CARE METER ID UU14314084
[2017-03-28 07:14] LABS: EOSINOPHIL (%) 0.4 % (0-5); EOSINOPHIL COUNT 0.1 K/uL (0-0.3); IMMATURE GRANULOCYTE (%) 1.4 % (0.0-0.7); IMMATURE GRANULOCYTE COUNT 0.2 K/uL; INSTRUMENT ABS NEUTROPHIL CT 13.1 K/uL; LYMPHOCYTE COUNT 1.9 K/uL (1.0-2.8); MCH 26.7 PG (29.0-34.0); MCHC 30.3 G/DL (30.0-36.0); MCV 88.2 FL (83-99); MONOCYTE (%) 6.1 % (3-12); NEUTROPHIL (%) 80.2 % (45-76); NEUTROPHIL COUNT 13.1 K/uL (1.8-6.4); RBC DIS.WIDTH-CV 14.3 % (11.8-14.6); RBC DIS.WIDTH-SD 45.7 % (39-53); RED BLOOD COUNT 3.74 M/uL (3.80-5.20); WHITE BLOOD COUNT 16.4 K/uL (4.1-10.2)
[2017-03-28 07:31] LABS: POINT-OF-CARE METER ID UU14314084
[2017-03-28 07:40] LABS: HEMATOLOGY COMMENT 1 SN; MEAN PLAT.VOLUME 10.8 uM^3 (9.5-12.4); PLAT.SUFFICIENCY ADEQUATE; PLATELET COUNT 263 K/uL (156-360)
[2017-03-28 07:42] LABS: ALKALINE PHOSPHATASE 66 IU/L (3-129); ANION GAP 11 MEQ/L (2-14); CHLORIDE 107 MEQ/L (99-109); GFR ESTIMATE (CALCULATED) > 59 mL/min/; POTASSIUM 3.6 MEQ/L (3.7-5.4); SAMPLE HEMOLYSIS CHECK 0; SAMPLE ICTERIC CHECK 0; SAMPLE LIPEMIA CHECK 0; SODIUM 142 MEQ/L (136-147); TOTAL BILIRUBIN 0.4 MG/DL (0.0-1.0); UREA NITROGEN (BUN) 19 mg/dL (9-23)
[2017-03-28 07:43] LABS: GLUCOSE 90 mg/dL (70-99)
[2017-03-28 10:48] LABS: POINT-OF-CARE METER ID UU14314084
[2017-03-28 13:48] VITALS: BP 12/61
[2017-03-28 15:52] VITALS: BP 118/57
[2017-03-28 15:55] LABS: POINT-OF-CARE METER ID UU14314084
[2017-03-28 21:15] LABS: POINT-OF-CARE METER ID UU14208750
[2017-03-28 23:47] VITALS: BP 124/60
[2017-03-29 06:32] LABS: POINT-OF-CARE METER ID UU14208750
[2017-03-29 08:00] VITALS: BP 131/63
[2017-03-29] MEDS ORDERED: [UNRECOGNIZED DRUG - OTHER] MM (11:56)
[2017-03-29] MEDS ORDERED: DOXYCYCLINE HY100 M3 PO (11:56)
[2017-03-29] MEDS ORDERED: AUGMENTIN875 MG PO (11:56)
[2017-03-29] MEDS ORDERED: MYCOSTATIN 100,60 ML PO (11:56)
[2017-03-29] MEDS ORDERED: ACIDOPHILUS LA1 EACH PO (11:56)
[2017-03-29] MEDS ORDERED: PREDNISONE10 MG PO (11:56)
[2017-03-29 12:13] LABS: POINT-OF-CARE METER ID UU14314084
== END 2017-03-29 15:45 | disposition home health service (06) | DRG 190 ==
LOC: EME 08:56 → 2EAST 11:27 → EDOF 11:27 → ENRESERV 11:31 → 2EAST 14:43
PROVIDERS: Emergency Medicine; Hospitalist; Internal Medicine
DX: J44.0 Chronic obstructive pulmonary disease with (acute) lower respiratory infection (principal); J18.9 Pneumonia, unspecified organism; E87.1 Hypo-osmolality and hyponatremia; B37.0 Candidal stomatitis; D63.8 Anemia in other chronic diseases classified elsewhere; E78.5 Hyperlipidemia, unspecified; I48.0 Paroxysmal atrial fibrillation; Z99.81 Dependence on supplemental oxygen; J44.1 Chronic obstructive pulmonary disease with (acute) exacerbation; J96.11 Chronic respiratory failure with hypoxia; I10 Essential (primary) hypertension; C34.90 Malignant neoplasm of unspecified part of unspecified bronchus or lung; Z79.4 Long term (current) use of insulin; E11.9 Type 2 diabetes mellitus without complications
CPT/HCPCS: 36600; 71010; 71250; 80048; 80053; 82803; 82948; 84484; 85025; 87040; 87070; 87205; 87449; 87502; 87641; 90686; 93005; 94640; 94640 76; 94760; 94799; 99202; 99281; 99285; J1650; J1815; J2405; J2543; J2920; J3370; J7030; J7050; J7512

== ENCOUNTER 2017-04-04 20:11 | Emergency (ER) | payer OTHER ==
[~2017-04-04] VITALS: Ht 152.4 cm; Wt 61.4 kg
[~2017-04-04 20:11] MED LIST changes: +ACIDOPHILUS LA1 EACH PO; +DOXYCYCLINE HY100 M3 PO; +DUONEB 2.5-0.5 M3 ML AEROSOL; +MYCOSTATIN 100,60 ML PO; +VITAMIN D31000 UNI2 PO; +[UNRECOGNIZED DRUG - OTHER] MM
[2017-04-04 23:56] VITALS: BP 134/79
== END 2017-04-04 23:58 | disposition home or self-care (01) ==
LOC: EME 20:11
DX: M25.532 Pain in left wrist (principal); R51 Headache; W01.0XXA Fall on same level from slipping, tripping and stumbling without subsequent striking against object, initial encounter; Y92.009 Unspecified place in unspecified non-institutional (private) residence as the place of occurrence of the external cause; Z85.118 Personal history of other malignant neoplasm of bronchus and lung; Z99.81 Dependence on supplemental oxygen
CPT/HCPCS: 70450; 73110; 99281; 99284

== ENCOUNTER 2017-04-06 09:38 | Inpatient (IN) | payer OTHER ==
[~2017-04-06] VITALS: Ht 152.4 cm; Wt 61.4 kg
[2017-04-06 10:18] LABS: HEMATOCRIT 39.3 % (36.0-46.0); MCH 26.9 PG (29.0-34.0); MCHC 31.6 G/DL (30.0-36.0); MCV 85.2 FL (83-99); MEAN PLAT.VOLUME 10.1 uM^3 (9.5-12.4); PLATELET COUNT 421 K/uL (156-360); RBC DIS.WIDTH-CV 15.4 % (11.8-14.6); RBC DIS.WIDTH-SD 47.3 % (39-53); RED BLOOD COUNT 4.61 M/uL (3.80-5.20); WHITE BLOOD COUNT 16.6 K/uL (4.1-10.2)
[2017-04-06 10:29] LABS: CHLORIDE 100 mEq/L (99-109); POTASSIUM 3.9 mEq/L (3.7-5.4); SODIUM 138 mEq/L (136-147)
[2017-04-06 10:30] LABS: GLUCOSE 222 mg/dL (70-99)
[2017-04-06 10:32] LABS: ANION GAP 18 MEQ/L (2-14)
[2017-04-06 10:34] LABS: GFR ESTIMATE (CALCULATED) 57 mL/min/
[2017-04-06 10:35] LABS: UREA NITROGEN (BUN) 16 mg/dL (9-23)
[2017-04-06 10:42] LABS: TROP-I INTERPRETATION NEGATIVE; TROPONIN-I 0.01 ng/mL (0.0-0.30)
[2017-04-06] MEDS ORDERED: PRILOSEC20 MG PO (15:45)
[2017-04-06] MEDS ORDERED: PREDNISONE10 MG PO (15:46)
[2017-04-06] MEDS ORDERED: DIFLUCAN100 MG PO (15:50)
[2017-04-06] MEDS ORDERED: AVELOX400 MG PO (15:51)
[2017-04-06 16:11] VITALS: BP 168/75
[2017-04-06 16:20] LABS: INFLUENZA A VIRAL ANTIGEN NEGATIVE; INFLUENZA B VIRAL ANTIGEN NEGATIVE
[2017-04-06 18:50] VITALS: BP 137/69
[2017-04-06 20:19] LABS: BASE EXCESS 1.7 mEq/L (-3 to +3); BICARBONATE 25.8 mEq/L (22-26); METHEMOGLOBIN 1.5 % (0-1.5); PCO2 38 mm Hg (35-45); pH 7.44 (7.35-7.45)
[2017-04-06 20:20] LABS: COMMENTS - BLOOD GASES A+C+; DEVICE HFNC; O2 FLOW 15 L/MIN; PO2 52 mm Hg (80-100); SITE RR
[2017-04-06 21:51] LABS: POINT-OF-CARE METER ID UU14188625
[2017-04-06 23:45] VITALS: BP 148/71
[2017-04-07 03:45] VITALS: BP 129/69
[2017-04-07 04:10] LABS: BASOPHIL COUNT 0.1 K/uL (0-0.1); EOSINOPHIL (%) 0.9 % (0-5); EOSINOPHIL COUNT 0.2 K/uL (0-0.3); HEMATOCRIT 34.3 % (36.0-46.0); IMMATURE GRANULOCYTE COUNT 0.2 K/uL; LYMPHOCYTE COUNT 1.1 K/uL (1.0-2.8); MCHC 31.2 G/DL (30.0-36.0); MCV 86.6 FL (83-99); MEAN PLAT.VOLUME 10.5 uM^3 (9.5-12.4); MONOCYTE (%) 5.6 % (3-12); MONOCYTE COUNT 1.1 K/uL (0-0.8); NEUTROPHIL (%) 86.2 % (45-76); PLATELET COUNT 339 K/uL (156-360); RBC DIS.WIDTH-CV 15.5 % (11.8-14.6); RBC DIS.WIDTH-SD 48.4 % (39-53); RED BLOOD COUNT 3.96 M/uL (3.80-5.20); WHITE BLOOD COUNT 19.7 K/uL (4.1-10.2)
[2017-04-07 04:16] LABS: CHLORIDE 102 mEq/L (99-109); POTASSIUM 3.9 mEq/L (3.7-5.4); SODIUM 137 mEq/L (136-147)
[2017-04-07 04:18] LABS: GLUCOSE 136 mg/dL (70-99)
[2017-04-07 04:19] LABS: ANION GAP 12 MEQ/L (2-14)
[2017-04-07 04:20] LABS: TOTAL BILIRUBIN 0.7 mg/dL (0.0-1.0)
[2017-04-07 04:21] LABS: ALKALINE PHOSPHATASE 53 IU/L (3-129)
[2017-04-07 04:22] LABS: GFR ESTIMATE (CALCULATED) > 59 mL/min/
[2017-04-07 04:23] LABS: UREA NITROGEN (BUN) 13 mg/dL (9-23)
[2017-04-07 07:58] VITALS: BP 128/62
[2017-04-07 08:00] LABS: METH RESISTANT S AUREUS PCR NEGATIVE (NEGATIVE); PROBE CHECK PASS; SPECIMEN PROCESSING CONTROL PASS
[2017-04-07 08:29] LABS: POINT-OF-CARE METER ID UU14188625
[2017-04-07 09:33] LABS: INTERNAL CONTROL VALID? YES
[2017-04-07 12:06] LABS: POINT-OF-CARE METER ID UU13113717
[2017-04-07 12:33] VITALS: BP 117/58
[2017-04-07 15:50] VITALS: BP 105/66
[2017-04-07 16:51] LABS: POINT-OF-CARE METER ID UU14188625
[2017-04-07 19:58] VITALS: BP 113/69
[2017-04-07 21:33] LABS: POINT-OF-CARE METER ID UU14188625
[2017-04-07 23:54] VITALS: BP 109/65
[2017-04-08 04:11] VITALS: BP 115/71
[2017-04-08 06:55] LABS: HEMATOCRIT 31.5 % (36.0-46.0); MCH 26.4 PG (29.0-34.0); MCHC 30.5 G/DL (30.0-36.0); MCV 86.5 FL (83-99); MEAN PLAT.VOLUME 10.5 uM^3 (9.5-12.4); PLATELET COUNT 336 K/uL (156-360); RBC DIS.WIDTH-CV 15.4 % (11.8-14.6); RED BLOOD COUNT 3.64 M/uL (3.80-5.20); WHITE BLOOD COUNT 11.3 K/uL (4.1-10.2)
[2017-04-08 07:14] LABS: POINT-OF-CARE METER ID UU14188625
[2017-04-08 07:17] LABS: ANION GAP 10 MEQ/L (2-14); CHLORIDE 101 MEQ/L (99-109); GFR ESTIMATE (CALCULATED) > 59 mL/min/; GLUCOSE 273 mg/dL (70-99); POTASSIUM 4.1 MEQ/L (3.7-5.4); SAMPLE HEMOLYSIS CHECK 0; SAMPLE ICTERIC CHECK 0; SAMPLE LIPEMIA CHECK 0; SODIUM 138 MEQ/L (136-147); UREA NITROGEN (BUN) 16 mg/dL (9-23)
[2017-04-08 08:26] VITALS: BP 125/68
[2017-04-08 11:35] VITALS: BP 125/65
[2017-04-08 12:25] LABS: POINT-OF-CARE METER ID UU14188625
[2017-04-08 16:12] VITALS: BP 144/66
[2017-04-08 19:35] VITALS: BP 132/66
[2017-04-08 21:38] LABS: POINT-OF-CARE METER ID UU14188625
[2017-04-09 00:03] VITALS: BP 112/59
[2017-04-09 03:44] VITALS: BP 106/59
[2017-04-09 06:09] LABS: HEMATOCRIT 30.7 % (36.0-46.0); MCH 26.5 PG (29.0-34.0); MCHC 30.6 G/DL (30.0-36.0); MCV 86.5 FL (83-99); MEAN PLAT.VOLUME 10.1 uM^3 (9.5-12.4); PLATELET COUNT 325 K/uL (156-360); RBC DIS.WIDTH-CV 15.4 % (11.8-14.6); RBC DIS.WIDTH-SD 48.2 % (39-53); RED BLOOD COUNT 3.55 M/uL (3.80-5.20); WHITE BLOOD COUNT 15.2 K/uL (4.1-10.2)
[2017-04-09 06:31] LABS: ANION GAP 10 MEQ/L (2-14); CHLORIDE 103 MEQ/L (99-109); GFR ESTIMATE (CALCULATED) > 59 mL/min/; GLUCOSE 247 mg/dL (70-99); POTASSIUM 3.8 MEQ/L (3.7-5.4); SAMPLE HEMOLYSIS CHECK 0; SAMPLE ICTERIC CHECK 0; SAMPLE LIPEMIA CHECK 0; SODIUM 139 MEQ/L (136-147); UREA NITROGEN (BUN) 17 mg/dL (9-23)
[2017-04-09 08:02] VITALS: BP 144/67
[2017-04-09 12:23] LABS: POINT-OF-CARE METER ID UU14174225
[2017-04-09 15:53] VITALS: BP 146/70
[2017-04-09 17:40] LABS: POINT-OF-CARE METER ID UU13113717
[2017-04-09 21:23] LABS: POINT-OF-CARE METER ID UU13113717
[2017-04-09 23:28] VITALS: BP 139/75
[2017-04-10 08:14] VITALS: BP 159/75
[2017-04-10 08:15] LABS: POINT-OF-CARE METER ID UU13113717
[2017-04-10 12:37] LABS: POINT-OF-CARE METER ID UU13113717; POINT-OF-CARE USER ID STWAMT
[2017-04-10 16:41] LABS: POINT-OF-CARE METER ID UU13113717
[2017-04-11 00:04] VITALS: BP 142/71
[2017-04-11 06:19] LABS: HEMATOCRIT 29.6 % (36.0-46.0); MCH 26.6 PG (29.0-34.0); MCHC 31.4 G/DL (30.0-36.0); MCV 84.6 FL (83-99); MEAN PLAT.VOLUME 10.1 uM^3 (9.5-12.4); PLATELET COUNT 311 K/uL (156-360); RBC DIS.WIDTH-CV 15.2 % (11.8-14.6); RBC DIS.WIDTH-SD 46.5 % (39-53)
[2017-04-11 06:41] LABS: ANION GAP 10 MEQ/L (2-14); CHLORIDE 103 MEQ/L (99-109); GFR ESTIMATE (CALCULATED) > 59 mL/min/; GLUCOSE 188 mg/dL (70-99); POTASSIUM 3.8 MEQ/L (3.7-5.4); SAMPLE HEMOLYSIS CHECK 0; SAMPLE ICTERIC CHECK 0; SAMPLE LIPEMIA CHECK 0; SODIUM 141 MEQ/L (136-147); UREA NITROGEN (BUN) 16 mg/dL (9-23)
[2017-04-11 08:00] VITALS: BP 161/72
[2017-04-11 08:15] LABS: POINT-OF-CARE METER ID UU14174225
[2017-04-11 12:38] LABS: POINT-OF-CARE METER ID UU14188625
[2017-04-11 16:00] VITALS: BP 146/66
[2017-04-11 17:48] LABS: POINT-OF-CARE METER ID UU13113717
[2017-04-11 21:02] LABS: POINT-OF-CARE METER ID UU13113717
[2017-04-12 00:05] VITALS: BP 170/86
[2017-04-12 07:35] VITALS: BP 155/82
[2017-04-12 08:44] LABS: POINT-OF-CARE METER ID UU13113717
[2017-04-12 11:43] LABS: BASE EXCESS 5.9 mEq/L (-3 to +3); BICARBONATE 29.7 mEq/L (22-26); CARBOXY HGB 1.9 % (0-5); COMMENTS - BLOOD GASES A+C+; DEVICE NC; METHEMOGLOBIN 1.5 % (0-1.5); O2 FLOW 6 L/MIN; PCO2 39 mm Hg (35-45); PO2 65 mm Hg (80-100); SITE RR; TOTAL RESP RATE 28 resp/min; pH 7.49 (7.35-7.45)
[2017-04-12 12:18] LABS: POINT-OF-CARE METER ID UU13113717
[2017-04-12 15:28] VITALS: BP 123/59
[2017-04-12 17:05] LABS: POINT-OF-CARE METER ID UU13113717
[2017-04-12 21:08] LABS: POINT-OF-CARE METER ID UU14188625
[2017-04-12 23:28] VITALS: BP 142/84
[2017-04-13 06:59] LABS: ANION GAP 9 MEQ/L (2-14); CHLORIDE 99 MEQ/L (99-109); GFR ESTIMATE (CALCULATED) > 59 mL/min/; GLUCOSE 216 mg/dL (70-99); POTASSIUM 3.6 MEQ/L (3.7-5.4); SAMPLE HEMOLYSIS CHECK 0; SAMPLE ICTERIC CHECK 0; SAMPLE LIPEMIA CHECK 0; SODIUM 136 MEQ/L (136-147); UREA NITROGEN (BUN) 17 mg/dL (9-23)
[2017-04-13 07:09] LABS: HEMATOCRIT 32.8 % (36.0-46.0); MCH 27.4 PG (29.0-34.0); MCHC 32.6 G/DL (30.0-36.0); MCV 83.9 FL (83-99); MEAN PLAT.VOLUME 11.2 uM^3 (9.5-12.4); PLATELET COUNT 220 K/uL (156-360); RBC DIS.WIDTH-CV 15.4 % (11.8-14.6); RBC DIS.WIDTH-SD 46.3 % (39-53); RED BLOOD COUNT 3.91 M/uL (3.80-5.20); WHITE BLOOD COUNT 9.1 K/uL (4.1-10.2)
[2017-04-13 07:45] VITALS: BP 146/68
[2017-04-13 12:03] LABS: POINT-OF-CARE METER ID UU14174225; POINT-OF-CARE USER ID STWAMT
[2017-04-13 16:24] VITALS: BP 144/67
[2017-04-13 17:02] LABS: POINT-OF-CARE METER ID UU14188625
[2017-04-13 22:07] LABS: POINT-OF-CARE METER ID UU13113717
[2017-04-13 23:32] VITALS: BP 141/79
[2017-04-14 06:04] LABS: HEMATOCRIT 38.1 % (36.0-46.0); MCH 27.4 PG (29.0-34.0); MCHC 31.8 G/DL (30.0-36.0); MCV 86.2 FL (83-99); MEAN PLAT.VOLUME 10.7 uM^3 (9.5-12.4); RBC DIS.WIDTH-CV 15.7 % (11.8-14.6); RBC DIS.WIDTH-SD 48.8 % (39-53); RED BLOOD COUNT 4.42 M/uL (3.80-5.20); WHITE BLOOD COUNT 9.9 K/uL (4.1-10.2)
[2017-04-14 06:11] LABS: PLATELET COUNT 309 K/uL (156-360)
[2017-04-14 06:30] LABS: ANION GAP 15 MEQ/L (2-14); CHLORIDE 96 MEQ/L (99-109); GFR ESTIMATE (CALCULATED) > 59 mL/min/; GLUCOSE 184 mg/dL (70-99); POTASSIUM 3.9 MEQ/L (3.7-5.4); SAMPLE HEMOLYSIS CHECK 0; SAMPLE ICTERIC CHECK 0; SAMPLE LIPEMIA CHECK 0; SODIUM 136 MEQ/L (136-147); UREA NITROGEN (BUN) 15 mg/dL (9-23)
[2017-04-14 06:55] LABS: POINT-OF-CARE METER ID UU14174225
[2017-04-14 07:13] VITALS: BP 143/72
[2017-04-14 11:20] LABS: POINT-OF-CARE METER ID UU14174225
[2017-04-14] MEDS ORDERED: ADVAIR HFA120 INHAL1 IH (14:05)
[2017-04-14] MEDS ORDERED: FUROSEMIDE20 MG PO (14:05)
[2017-04-14] MEDS ORDERED: JANUVIA25 M1 PO (14:06)
[2017-04-14] MEDS ORDERED: PREDNISONE10 MG PO (14:07)
== END 2017-04-14 15:33 | disposition home or self-care (01) | DRG 871 ==
LOC: EME 09:38 → EDOF 13:54 → 5SOUTH 13:54 → ENRESERV 13:56 → CANRESERV 13:56 → ENRESERV 13:58 → 5SOUTH 15:54
PROVIDERS: Emergency Medicine; Hospitalist; Internal Medicine
DX: A41.9 Sepsis, unspecified organism (principal); J44.1 Chronic obstructive pulmonary disease with (acute) exacerbation; J18.9 Pneumonia, unspecified organism; J44.0 Chronic obstructive pulmonary disease with (acute) lower respiratory infection; J96.01 Acute respiratory failure with hypoxia; C34.90 Malignant neoplasm of unspecified part of unspecified bronchus or lung; R65.20 Severe sepsis without septic shock; S00.83XA Contusion of other part of head, initial encounter; W18.30XA Fall on same level, unspecified, initial encounter; E11.9 Type 2 diabetes mellitus without complications; E87.2 Acidosis; F41.9 Anxiety disorder, unspecified; D89.9 Disorder involving the immune mechanism, unspecified; Z66 Do not resuscitate; Y95 Nosocomial condition; Z99.81 Dependence on supplemental oxygen; Z79.84 Long term (current) use of oral hypoglycemic drugs; Z79.899 Other long term (current) drug therapy; Z85.118 Personal history of other malignant neoplasm of bronchus and lung; Z87.01 Personal history of pneumonia (recurrent); Z92.21 Personal history of antineoplastic chemotherapy; Z83.3 Family history of diabetes mellitus; Z82.49 Family history of ischemic heart disease and other diseases of the circulatory system; Z72.0 Tobacco use
CPT/HCPCS: 36600; 70450; 71010; 71020; 71275; 73110; 80048; 80053; 80202; 82565; 82803; 82948; 83605; 83880; 83880 GA; 84484; 84520; 85025; 85027; 87040; 87070; 87205; 87449; 87502; 87641; 87801; 93005; 94640; 94640 76; 94667; 94668; 94760; 94799; 99202; 99281; 99284; C1753; J0692; J0696; J1100; J1650; J1815; J1940; J2270; J2405; J2543; J2930; J3370; J7030; J7050; J7512; J9267

== ENCOUNTER 2017-04-30 18:36 | Inpatient (IN) | payer OTHER ==
[~2017-04-30] VITALS: Ht 152.4 cm; Wt 63.5 kg
[~2017-04-30 18:36] MED LIST changes: +ADVAIR HFA120 INHAL1 IH; +AVELOX400 MG PO; +DIFLUCAN100 MG PO; +FUROSEMIDE20 MG PO; +JANUVIA25 M1 PO; +PRILOSEC20 MG PO
[2017-04-30 19:30] LABS: HEMATOCRIT 37.2 % (36.0-46.0); MCV 84.4 FL (83-99); MEAN PLAT.VOLUME 10.6 uM^3 (9.5-12.4); PLATELET COUNT 403 K/uL (156-360); RBC DIS.WIDTH-CV 15.3 % (11.8-14.6); RBC DIS.WIDTH-SD 46.2 % (39-53); RED BLOOD COUNT 4.41 M/uL (3.80-5.20); WHITE BLOOD COUNT 5.7 K/uL (4.1-10.2)
[2017-04-30 19:41] LABS: CHLORIDE 90 mEq/L (99-109); SODIUM 131 mEq/L (136-147)
[2017-04-30 19:43] LABS: GLUCOSE 208 mg/dL (70-99)
[2017-04-30 19:45] LABS: ANION GAP 19 MEQ/L (2-14)
[2017-04-30 19:47] LABS: GFR ESTIMATE (CALCULATED) > 59 mL/min/
[2017-04-30 19:48] LABS: UREA NITROGEN (BUN) 14 mg/dL (9-23)
[2017-04-30 19:51] LABS: POTASSIUM 4.6 mEq/L (3.7-5.4)
[2017-04-30 19:54] LABS: TROP-I INTERPRETATION NEGATIVE; TROPONIN-I < 0.01 ng/mL (0.0-0.30)
[2017-04-30 21:11] LABS: INTER. NORMALIZED RATIO 1.4
[2017-04-30 21:14] LABS: PTT 25.7 SEC (25-37)
[2017-04-30] MEDS ORDERED: ADVAIR HFA120 INHAL1 IH (23:02)
[2017-04-30] MEDS ORDERED: FUROSEMIDE20 MG PO (23:02)
[2017-04-30] MEDS ORDERED: PREDNISONE10 MG PO (23:03)
[2017-04-30] MEDS ORDERED: COMPAZINE10 MG PO (23:04)
[2017-04-30] MEDS ORDERED: OXYCODONE HCL5 MG PO (23:04)
[2017-04-30] MEDS ORDERED: CLOTRIMAZOLE10 MG PO (23:05)
[2017-04-30 23:25] VITALS: BP 124/63
[2017-05-01 04:58] LABS: HEMATOCRIT 27.4 % (36.0-46.0); MCH 26.5 PG (29.0-34.0); MCHC 31.8 G/DL (30.0-36.0); MCV 83.5 FL (83-99); MEAN PLAT.VOLUME 10.1 uM^3 (9.5-12.4); PLATELET COUNT 387 K/uL (156-360); RBC DIS.WIDTH-CV 15.3 % (11.8-14.6); RBC DIS.WIDTH-SD 46.1 % (39-53); RED BLOOD COUNT 3.28 M/uL (3.80-5.20)
[2017-05-01 05:15] VITALS: BP 134/65
[2017-05-01 05:38] LABS: CHLORIDE 97 mEq/L (99-109); POTASSIUM 4.4 mEq/L (3.7-5.4); SODIUM 131 mEq/L (136-147)
[2017-05-01 05:39] LABS: GLUCOSE 233 mg/dL (70-99)
[2017-05-01 05:41] LABS: ANION GAP 13 MEQ/L (2-14)
[2017-05-01 05:43] LABS: GFR ESTIMATE (CALCULATED) > 59 mL/min/
[2017-05-01 05:44] LABS: UREA NITROGEN (BUN) 13 mg/dL (9-23)
[2017-05-01 07:11] VITALS: BP 104/72
[2017-05-01 07:20] LABS: ABS NEUTROPHIL COUNT 5.7; BAND NEUTROPHILS 8.9 % (0-8.0); BASOPHILS 0.9 %; EOSINOPHIL ABS CT 0; INSTRUMENT ABS NEUTROPHIL CT 5.1 K/uL; LYMPHOCYTES 2.7 % (15.0-45.0); MICROCYTOSIS 1+; PLAT.SUFFICIENCY ADEQUATE; SEG.NEUTROPHILS 86.6 % (46.0-76.0)
[2017-05-01 08:13] LABS: POINT-OF-CARE METER ID UU14174216
[2017-05-01 11:09] VITALS: BP 101/54
[2017-05-01 11:47] LABS: POINT-OF-CARE METER ID UU13113781
[2017-05-01 13:19] LABS: INTER. NORMALIZED RATIO 1.4; PROTHROMBIN TIME 16.2 SEC (10.2-12.9)
[2017-05-01 13:30] LABS: PTT 65.2 SEC (25-37)
[2017-05-01 16:41] VITALS: BP 119/64
[2017-05-01 17:35] LABS: POINT-OF-CARE METER ID UU13113781
[2017-05-01 19:15] VITALS: BP 108/60
[2017-05-01 20:55] LABS: POINT-OF-CARE METER ID UU13113698
[2017-05-01 22:58] VITALS: BP 101/57
[2017-05-02 07:12] VITALS: BP 113/62
[2017-05-02 08:14] LABS: POINT-OF-CARE METER ID UU13113781
[2017-05-02 11:14] VITALS: BP 108/55
[2017-05-02 11:26] LABS: POINT-OF-CARE METER ID UU14174216
[2017-05-02 14:09] LABS: ADD MIUA? NO; BILIRUBIN NEGATIVE; BLOOD NEGATIVE; COLOR YELLOW ((YELLOW)); GLUCOSE (STRIP) >=500; KETONES 5; LEUKOCYTES NEGATIVE; NITRITE NEGATIVE; PROTEIN (STRIP) NEGATIVE; SPECIFIC GRAVITY 1.035 (1.000-1.030); UCUL ADDED? NO; UROBILINOGEN 0.2 MG/DL (0.2-1.0)
[2017-05-02 15:49] VITALS: BP 108/59
[2017-05-02 16:57] LABS: POINT-OF-CARE METER ID UU14174216
[2017-05-02 19:34] VITALS: BP 119/63
[2017-05-02 21:09] LABS: POINT-OF-CARE METER ID UU13113781
[2017-05-02 23:15] VITALS: BP 105/55
[2017-05-03 04:04] VITALS: BP 110/59
[2017-05-03 08:17] LABS: POINT-OF-CARE METER ID UU14174216
[2017-05-03 08:30] VITALS: BP 117/59
[2017-05-03 08:47] LABS: INTERNAL CONTROL VALID? YES
[2017-05-03 08:48] LABS: INTERNAL CONTROL VALID? YES
[2017-05-03] MEDS ORDERED: PREDNISONE10 M1 PO (12:33)
[2017-05-03] MEDS ORDERED: XARELTO1 EACH PO (12:33)
[2017-05-03] MEDS ORDERED: AMOX TR-K CLV1 EAC4 PO (12:33)
[2017-05-03] MEDS ORDERED: DOXYCYCLINE HY100 M3 PO (12:33)
[2017-05-03 12:57] VITALS: BP 130/83
[2017-05-03 22:22] LABS: POINT-OF-CARE METER ID UU13113698
[2017-05-07 19:15] LABS: POINT-OF-CARE METER ID UU13113731
== END 2017-05-03 14:34 | disposition home or self-care (01) | DRG 175 ==
LOC: EME 18:36 → 4EAST 22:19 → EDOF 22:19 → ENRESERV 22:23 → 4EAST 23:05
PROVIDERS: Emergency Medicine; Hospitalist
DX: I26.99 Other pulmonary embolism without acute cor pulmonale (principal); J96.21 Acute and chronic respiratory failure with hypoxia; C34.90 Malignant neoplasm of unspecified part of unspecified bronchus or lung; E11.65 Type 2 diabetes mellitus with hyperglycemia; J44.1 Chronic obstructive pulmonary disease with (acute) exacerbation; E87.1 Hypo-osmolality and hyponatremia; E88.09 Other disorders of plasma-protein metabolism, not elsewhere classified; R00.0 Tachycardia, unspecified; J18.9 Pneumonia, unspecified organism; Y95 Nosocomial condition; J44.0 Chronic obstructive pulmonary disease with (acute) lower respiratory infection; R19.7 Diarrhea, unspecified; I10 Essential (primary) hypertension; E78.5 Hyperlipidemia, unspecified; T17.890A Other foreign object in other parts of respiratory tract causing asphyxiation, initial encounter; Z51.5 Encounter for palliative care; Z66 Do not resuscitate; Z99.81 Dependence on supplemental oxygen; Z82.49 Family history of ischemic heart disease and other diseases of the circulatory system; Z87.01 Personal history of pneumonia (recurrent); Z92.21 Personal history of antineoplastic chemotherapy; Z92.3 Personal history of irradiation; I48.0 Paroxysmal atrial fibrillation
CPT/HCPCS: 71020; 71275; 80048; 80202; 81003; 82948; 83605; 84484; 85025; 85027; 85610; 85730; 87040; 87070; 87205; 87449; 93005; 94640; 94640 76; 94760; 94799; 99202; 99281; 99285; J1650; J1815; J2543; J2920; J2930; J3370; J7030; J7050

== ENCOUNTER 2017-05-05 17:30 | Inpatient (IN) | payer OTHER ==
[~2017-05-05] VITALS: Ht 160 cm; Wt 56.6 kg
[~2017-05-05 17:30] MED LIST changes: +AMOX TR-K CLV1 EAC4 PO; +CLOTRIMAZOLE10 MG PO; +PREDNISONE10 M1 PO; +XARELTO1 EACH PO
[2017-05-05 18:30] LABS: HEMATOCRIT 32.9 % (36.0-46.0); MCH 26.4 PG (29.0-34.0); MCHC 31.9 G/DL (30.0-36.0); MCV 82.9 FL (83-99); MEAN PLAT.VOLUME 10.1 uM^3 (9.5-12.4); RBC DIS.WIDTH-CV 16.2 % (11.8-14.6); RBC DIS.WIDTH-SD 48.5 % (39-53)
[2017-05-05 18:31] LABS: PLATELET COUNT 608 K/uL (156-360); RED BLOOD COUNT 3.97 M/uL (3.80-5.20)
[2017-05-05 18:39] LABS: PROTHROMBIN TIME 22.6 SEC (10.2-12.9)
[2017-05-05 18:43] LABS: CARBON DIOXIDE (BICARBONATE) 31.9 MEQ/L (20-31)
[2017-05-05 18:45] LABS: CHLORIDE 95 mEq/L (99-109); SODIUM 131 mEq/L (136-147)
[2017-05-05 18:46] LABS: GLUCOSE 328 mg/dL (70-99)
[2017-05-05 18:48] LABS: ANION GAP 9 MEQ/L (2-14)
[2017-05-05 18:49] LABS: POTASSIUM 3.1 mEq/L (3.7-5.4)
[2017-05-05 18:50] LABS: GFR ESTIMATE (CALCULATED) > 59 mL/min/
[2017-05-05 18:51] LABS: UREA NITROGEN (BUN) 19 mg/dL (9-23)
[2017-05-05 18:53] LABS: TROP-I INTERPRETATION NEGATIVE; TROPONIN-I 0.11 ng/mL (0.0-0.30)
[2017-05-05] MEDS ORDERED: PROVENTIL,2.5 MG/3 M IH (19:34)
[2017-05-05] MEDS ORDERED: SENEXON-S TABL1 EACH PO (19:37)
[2017-05-05 21:44] LABS: BASE EXCESS 6.3 mEq/L (-3 to +3); BICARBONATE 30.6 mEq/L (22-26); CARBOXY HGB 1.1 % (0-5); METHEMOGLOBIN 0.9 % (0-1.5); PCO2 42 mm Hg (35-45); pH 7.47 (7.35-7.45)
[2017-05-05 21:45] LABS: COMMENTS - BLOOD GASES A+C+; DEVICE VENT; FI02 60 %; MODE SPONT; PEEP 5 CM/H20; PO2 90 mm Hg (80-100); PRES. SUPPORT 10 CM/H2O; SITE RR; TOTAL RESP RATE 30 resp/min
[2017-05-05 22:48] VITALS: BP 122/86
[2017-05-05 23:04] VITALS: BP 122/86
[2017-05-06] VITALS (20 sets, daily range): BP systolic 77–104; BP diastolic 47–63
[2017-05-06 00:22] LABS: METH RESISTANT S AUREUS PCR NEGATIVE (NEGATIVE)
[2017-05-06 00:23] LABS: PROBE CHECK PASS; SPECIMEN PROCESSING CONTROL PASS
[2017-05-06 00:44] LABS: CHLORIDE 95 mEq/L (99-109); POTASSIUM 3.4 mEq/L (3.7-5.4); SODIUM 132 mEq/L (136-147)
[2017-05-06 00:45] LABS: GLUCOSE 267 mg/dL (70-99)
[2017-05-06 00:47] LABS: ANION GAP 8 MEQ/L (2-14)
[2017-05-06 00:49] LABS: GFR ESTIMATE (CALCULATED) > 59 mL/min/
[2017-05-06 00:50] LABS: UREA NITROGEN (BUN) 18 mg/dL (9-23)
[2017-05-06 00:58] LABS: POINT-OF-CARE METER ID UU13113748
[2017-05-06 06:15] LABS: POINT-OF-CARE METER ID UU14174217
[2017-05-06 06:30] LABS: HEMATOCRIT 26.9 % (36.0-46.0); MCH 26.6 PG (29.0-34.0); MCHC 32.3 G/DL (30.0-36.0); MCV 82.3 FL (83-99); MEAN PLAT.VOLUME 10.3 uM^3 (9.5-12.4); NRBC (%) 0.8 /100 WBC (0-0); PLATELET COUNT 493 K/uL (156-360); RBC DIS.WIDTH-CV 16.6 % (11.8-14.6); RBC DIS.WIDTH-SD 49.1 % (39-53); RED BLOOD COUNT 3.27 M/uL (3.80-5.20); WHITE BLOOD COUNT 14.3 K/uL (4.1-10.2)
[2017-05-06 06:45] LABS: ANION GAP 9 MEQ/L (2-14); CHLORIDE 97 MEQ/L (99-109); GFR ESTIMATE (CALCULATED) > 59 mL/min/; GLUCOSE 231 mg/dL (70-99); POTASSIUM 3.9 MEQ/L (3.7-5.4); SAMPLE HEMOLYSIS CHECK 0; SAMPLE ICTERIC CHECK 0; SAMPLE LIPEMIA CHECK 0; SODIUM 135 MEQ/L (136-147); UREA NITROGEN (BUN) 19 mg/dL (9-23)
[2017-05-06 10:24] LABS: POINT-OF-CARE METER ID UU14208751
[2017-05-06 16:49] LABS: POINT-OF-CARE METER ID UU14174217
[2017-05-06 21:12] LABS: POINT-OF-CARE METER ID UU14174217
[2017-05-07] VITALS (21 sets, daily range): BP systolic 81–133; BP diastolic 49–78
[2017-05-07 15:06] LABS: INTER. NORMALIZED RATIO 1.2; PROTHROMBIN TIME 14.1 SEC (10.2-12.9)
[2017-05-07 15:13] LABS: PTT 23.6 SEC (25-37)
[2017-05-07 17:02] LABS: INTER. NORMALIZED RATIO 1.3; PROTHROMBIN TIME 15.3 SEC (10.2-12.9)
[2017-05-07 17:12] LABS: PTT 51.5 SEC (25-37)
[2017-05-07 17:44] LABS: POINT-OF-CARE METER ID UU14174217
[2017-05-07 19:13] LABS: POINT-OF-CARE METER ID UU14208751
[2017-05-07 21:25] LABS: POINT-OF-CARE METER ID UU13113731
[2017-05-07 23:17] LABS: INTER. NORMALIZED RATIO 1.2; PROTHROMBIN TIME 13.7 SEC (10.2-12.9)
[2017-05-07 23:20] LABS: PTT 29.4 SEC (25-37)
[2017-05-08] VITALS (24 sets, daily range): BP systolic 97–157; BP diastolic 55–92
[2017-05-08 06:37] LABS: HEMATOCRIT 25.9 % (36.0-46.0); MCH 26.1 PG (29.0-34.0); MCHC 31.3 G/DL (30.0-36.0); MCV 83.5 FL (83-99); MEAN PLAT.VOLUME 10.4 uM^3 (9.5-12.4); NRBC (%) 0.3 /100 WBC (0-0); PLATELET COUNT 444 K/uL (156-360); RBC DIS.WIDTH-CV 17.2 % (11.8-14.6); RBC DIS.WIDTH-SD 51.5 % (39-53); WHITE BLOOD COUNT 19.9 K/uL (4.1-10.2)
[2017-05-08 08:31] LABS: POINT-OF-CARE METER ID UU14208751
[2017-05-08 13:05] LABS: POINT-OF-CARE METER ID UU14208751
[2017-05-08 17:25] LABS: POINT-OF-CARE METER ID UU14208751
[2017-05-08 22:28] LABS: POINT-OF-CARE METER ID UU14314082; POINT-OF-CARE USER ID LABHNS84
[2017-05-09] VITALS (24 sets, daily range): BP systolic 83–137; BP diastolic 43–86
[2017-05-09 03:52] LABS: HEMATOCRIT 30.7 % (36.0-46.0); MCH 26.6 PG (29.0-34.0); MCHC 31.9 G/DL (30.0-36.0); MCV 83.2 FL (83-99); MEAN PLAT.VOLUME 10.4 uM^3 (9.5-12.4); NRBC (%) 0.8 /100 WBC (0-0); PLATELET COUNT 476 K/uL (156-360); RBC DIS.WIDTH-CV 17.2 % (11.8-14.6); RBC DIS.WIDTH-SD 51.3 % (39-53); RED BLOOD COUNT 3.69 M/uL (3.80-5.20); WHITE BLOOD COUNT 27.5 K/uL (4.1-10.2)
[2017-05-09 04:01] LABS: CHLORIDE 95 mEq/L (99-109); POTASSIUM 3.5 mEq/L (3.7-5.4); SODIUM 136 mEq/L (136-147)
[2017-05-09 04:03] LABS: GLUCOSE 173 mg/dL (70-99)
[2017-05-09 04:04] LABS: ANION GAP 16 MEQ/L (2-14)
[2017-05-09 04:05] LABS: TOTAL BILIRUBIN 0.3 mg/dL (0.0-1.0)
[2017-05-09 04:06] LABS: ALKALINE PHOSPHATASE 80 IU/L (3-129)
[2017-05-09 04:07] LABS: GFR ESTIMATE (CALCULATED) > 59 mL/min/
[2017-05-09 04:08] LABS: UREA NITROGEN (BUN) 21 mg/dL (9-23)
[2017-05-09 07:09] LABS: ABS NEUTROPHIL COUNT 22.9; BAND NEUTROPHILS 0.9 % (0-8.0); EOSINOPHIL ABS CT 0; LYMPHOCYTES 7.4 % (15.0-45.0); METAMYELOCYTES 1.7 %; MYELOCYTES 1.3 %; NUCLEATED RBC'S 1.3; PLAT.SUFFICIENCY INCREASED; SEG.NEUTROPHILS 82.2 % (46.0-76.0); SMUDGE CELLS 3.5
[2017-05-09 08:46] LABS: POINT-OF-CARE METER ID UU14162636
[2017-05-09 11:55] LABS: POINT-OF-CARE METER ID UU14314083
[2017-05-09 17:20] LABS: POINT-OF-CARE METER ID UU14314083
[2017-05-09 22:26] LABS: POINT-OF-CARE METER ID UU14314083
[2017-05-10] VITALS (24 sets, daily range): BP systolic 76–112; BP diastolic 40–57
[2017-05-10 08:33] LABS: POINT-OF-CARE METER ID UU13113748
[2017-05-10 12:07] LABS: POINT-OF-CARE METER ID UU14314082
[2017-05-10 16:49] LABS: POINT-OF-CARE METER ID UU14314082
[2017-05-10 22:47] LABS: POINT-OF-CARE METER ID UU14314082
[2017-05-11] VITALS (11 sets, daily range): BP systolic 86–119; BP diastolic 43–57
[2017-05-11 05:48] LABS: MCH 26.2 PG (29.0-34.0); MCHC 30.8 G/DL (30.0-36.0); MCV 85.1 FL (83-99); MEAN PLAT.VOLUME 10.5 uM^3 (9.5-12.4); NRBC (%) 0.1 /100 WBC (0-0); PLATELET COUNT 361 K/uL (156-360); RBC DIS.WIDTH-CV 17.2 % (11.8-14.6); RBC DIS.WIDTH-SD 52.2 % (39-53); WHITE BLOOD COUNT 29.5 K/uL (4.1-10.2)
[2017-05-11 05:49] LABS: RED BLOOD COUNT 2.82 M/uL (3.80-5.20)
[2017-05-11 06:10] LABS: ANION GAP 9 MEQ/L (2-14); CHLORIDE 93 MEQ/L (99-109); GFR ESTIMATE (CALCULATED) > 59 mL/min/; GLUCOSE 300 mg/dL (70-99); SAMPLE HEMOLYSIS CHECK 0; SAMPLE ICTERIC CHECK 0; SAMPLE LIPEMIA CHECK 0; SODIUM 136 MEQ/L (136-147); UREA NITROGEN (BUN) 22 mg/dL (9-23)
[2017-05-11 06:20] LABS: ABS NEUTROPHIL COUNT 27.7; BAND NEUTROPHILS 1.7 % (0-8.0); EOSINOPHIL ABS CT 0; INSTRUMENT ABS NEUTROPHIL CT 24.5 K/uL; LYMPHOCYTES 0.9 % (15.0-45.0); MYELOCYTES 1.7 %; SEG.NEUTROPHILS 92.2 % (46.0-76.0)
[2017-05-11 07:54] LABS: POINT-OF-CARE METER ID UU14314082
[2017-05-11 08:35] LABS: HEMATOCRIT 24.7 % (36.0-46.0); MCV 84.9 FL (83-99)
[2017-05-11 09:15] LABS: FERRITIN 484 NG/ML (10-291)
[2017-05-11 09:16] LABS: IRON 54 MCG/DL (35-150)
[2017-05-11 13:11] LABS: POINT-OF-CARE METER ID UU14162636
[2017-05-11 17:34] LABS: POINT-OF-CARE METER ID UU14162636
[2017-05-12] VITALS: BP 116/71
[2017-05-12 00:24] LABS: POINT-OF-CARE METER ID UU14314083
[2017-05-12 04:00] VITALS: BP 95/49
[2017-05-12 06:06] LABS: MEAN PLAT.VOLUME 10.1 uM^3 (9.5-12.4); PLATELET COUNT 381 K/uL (156-360)
[2017-05-12 06:28] LABS: ANION GAP 4 MEQ/L (2-14); CHLORIDE 97 MEQ/L (99-109); GFR ESTIMATE (CALCULATED) > 59 mL/min/; GLUCOSE 159 mg/dL (70-99); POTASSIUM 3.7 MEQ/L (3.7-5.4); SAMPLE HEMOLYSIS CHECK 0; SAMPLE ICTERIC CHECK 0; SAMPLE LIPEMIA CHECK 0; SODIUM 139 MEQ/L (136-147); UREA NITROGEN (BUN) 22 mg/dL (9-23)
[2017-05-12 06:37] LABS: HEMATOCRIT 25.2 % (36.0-46.0); MCH 26.8 PG (29.0-34.0); MCHC 31.7 G/DL (30.0-36.0); MCV 84.6 FL (83-99); NRBC (%) 0.1 /100 WBC (0-0); RBC DIS.WIDTH-CV 17.4 % (11.8-14.6); RBC DIS.WIDTH-SD 52.6 % (39-53); RED BLOOD COUNT 2.98 M/uL (3.80-5.20)
[2017-05-12 06:40] LABS: WHITE BLOOD COUNT 30.4 K/uL (4.1-10.2)
[2017-05-12 08:00] VITALS: BP 120/63
== END 2017-05-12 13:15 | disposition home or self-care (01) | DRG 199 ==
LOC: EME 17:30 → EDOF 20:42 → 4WEST 20:42 → ENRESERV 20:46 → 4WEST 22:48
PROVIDERS: Emergency Medicine; Internal Medicine; Internal Medicine Critical Care Medicine; Internal Medicine Pulmonary Disease; Specialist
PROC: 0W9B00Z Drainage of Left Pleural Cavity with Drainage Device, Open Approach (ICD-10-PCS; principal; 2017-05-05)
PROC: 5A0935Z Assistance with Respiratory Ventilation, Less than 24 Consecutive Hours (ICD-10-PCS; principal; 2017-05-05)
DX: J93.83 Other pneumothorax (principal); J18.9 Pneumonia, unspecified organism; J44.0 Chronic obstructive pulmonary disease with (acute) lower respiratory infection; I10 Essential (primary) hypertension; T17.990A Other foreign object in respiratory tract, part unspecified in causing asphyxiation, initial encounter; E78.5 Hyperlipidemia, unspecified; I48.0 Paroxysmal atrial fibrillation; C34.90 Malignant neoplasm of unspecified part of unspecified bronchus or lung; Y95 Nosocomial condition; R00.0 Tachycardia, unspecified; J96.21 Acute and chronic respiratory failure with hypoxia; Z51.5 Encounter for palliative care; E87.1 Hypo-osmolality and hyponatremia; D58.9 Hereditary hemolytic anemia, unspecified; R79.1 Abnormal coagulation profile; E11.65 Type 2 diabetes mellitus with hyperglycemia; J44.1 Chronic obstructive pulmonary disease with (acute) exacerbation; I26.99 Other pulmonary embolism without acute cor pulmonale; E87.2 Acidosis; J93.82 Other air leak; Z99.81 Dependence on supplemental oxygen; Z79.01 Long term (current) use of anticoagulants; Z79.1 Long term (current) use of non-steroidal anti-inflammatories (NSAID); Z74.01 Bed confinement status; Z79.899 Other long term (current) drug therapy; Z82.49 Family history of ischemic heart disease and other diseases of the circulatory system; Z86.711 Personal history of pulmonary embolism; Z79.84 Long term (current) use of oral hypoglycemic drugs
CPT/HCPCS: 36600; 71010; 80048; 80048 91; 80053; 80202; 82272; 82728; 82803; 82948; 83540; 83605; 83880; 84466; 84484; 85014; 85018; 85025; 85027; 85610; 85730; 86850; 86900; 86901; 86920; 87040; 87086; 87641; 93005; 94002; 94003; 94640; 94640 76; 94760; 94799; 97530 GO; 97530 GP; 99202; 99281; 99285; J0692; J1100; J1815; J1940; J2060; J2270; J2543; J2920; J2930; J3370; J7050